=== PATIENT | female | born 1965 | race Caucasian/White ===

== ENCOUNTER 2018-06-28 21:32 | Emergency (ER) | payer BC, OTHER ==
[~2018-06-28] VITALS: Ht 175.3 cm; Wt 117.9 kg
[~2018-06-28 21:32] MED LIST: BISACODYL SUPP10 MG RECTAL; CITRATE OF MAG296 ML PER TUBE; COLACE100 MG PO; DUONEB 2.5-0.5 M3 ML INH; EUCERIN CREME57 GM TOP; HEPARIN SO5000 UNIT2 SUBQ; LACTINEX CHEWA1 EACH PO; LEVOTHYROXIN0.075 MG PO; LIPITOR10 MG PO; LISINOPRIL5 MG PO; MELATONIN5 M1 PO; NORVASC5 MG PO; NYSTATIN 1100000 U/M PO; PEPTO-BISM262 MG/15 PO; PROBIOTIC1 EAC1 PO; SEROQUEL 25 MG25 M1 PO; TOPROL XL25 MG PO; TRAZODONE 150150 M1 PO; TYLENOL325 MG PO
[2018-06-28 22:19] LABS: URINE BLOOD 3+ (Negative); URINE CLARITY CLOUDY; URINE COLOR YELLOW; URINE GLUCOSE-RANDOM* NEGATIVE (Negative); URINE KETONES NEGATIVE (Negative); URINE NITRITE-REFLEX NEGATIVE (Negative); URINE PROTEIN (DIPSTICK) 2+ (Negative)
[2018-06-28 22:22] LABS: ICTOTEST (BILI CONFIRMATORY) Negative (Negative); URINE BILIRUBIN NEGATIVE (Negative); URINE LEUKOCYTES-REFLEX 3+ (Negative)
[2018-06-28 22:37] LABS: CASTS None Seen /LPF (None Seen); MUCUS >6 Heavy strn/LPF (None Seen); SQUAMOUS 4-10 Moderate /LPF (0-3); URINE WBC-REFLEX >25 Many /HPF (0-5)
[2018-06-28 22:38] LABS: BACTERIA-REFLEX >30 Many /HPF (None Seen); CRYSTALS None Seen /LPF (None Seen); URINE RBC >20 Many /HPF (0-2)
[2018-06-28 23:08] LABS: HEMOGLOBIN 13.1 gm/dL (12.0-15.0); MCH 28.3 pg (26.0-34.0); MCHC 32.9 g/dL (28.0-37.0); MCV 86.2 fL (80.0-100.0); RBC 4.64 mil/uL (4.20-5.00); RDW 14.2 % (10.5-14.5); WBC 9.5 thou/uL (4.0-11.0)
[2018-06-28 23:18] LABS: ANION GAP 10 mmol/L (7-16); BUN 19 mg/dL (7-18); CHLORIDE 106 mmol/L (98-107); CO2 22 mmol/L (21-32); CREATININE 0.9 mg/dL (0.6-1.0); GLUCOSE 122 mg/dL (74-106); POTASSIUM 3.4 mmol/L (3.5-5.1); SODIUM 138 mmol/L (136-145)
[2018-06-28 23:26] LABS: ALBUMIN 3.5 g/dL (3.4-5.0); LIPASE 156 U/L (73-393); SGOT 30 U/L (15-37); SGPT 41 U/L (30-65); TOTAL BILIRUBIN 0.3 mg/dL (<0.1-1.0); TOTAL PROTEIN 7.9 g/dL (6.4-8.2); TROPONIN-I <0.06 ng/mL (<0.06)
[2018-06-29] MEDS ORDERED: MACROBID 100 M100 M1 PO (00:02)
[2018-06-29 00:15] VITALS: BP 129/71
--- NOTE | 2018-06-29 16:52 | EKG ---
[place] [address] [facility] [place] [address] ELECTROCARDIOGRAM REPORT Name: LEAH BLUNT [facility] [id number] ������������������ Admission: 06/28/18 ������������������ Attend Phys: Discharge: 06/29/18 ������������������ Date of : 61 Report #: [id number] ����������������������������������������������������������������� [id number] THIS REPORT FOR: //name// [facility] ED Test Date: 2018-06-28 Test Time: 23:28:33 Pat Name: LEAH BLUNT Department: Room: Gender: F Branch Administrator: KARINA : 1965 Requested By: Nancy Garcia Order Number: [id number] MD: Christopher Carranza Measurements Intervals [place] Rate: 94 P: -6 VA: 157 QRS: -30 QRSD: 91 T: 35 QT: 354 QTc: 443 Interpretive Statements Sinus rhythm Left axis deviation No previous ECG available for comparison Electronically Signed On 06-29-2018 16:52:18 CDT by Christopher Carranza [email or web address] ��������������������������������������������� <ELECTRONICALLY SIGNED> ���������������������������������������� By: Christopher Carranza MD, [facility] ��������������������������������������������� 06/29/18 [id number] Christopher Carranza MD, FACC /EPI
== END 2018-06-29 00:29 | disposition home or self-care (01) ==
LOC: ER 21:32
PROVIDERS: Student in an Organized Health Care Education/Training Program
DX: N39.0 Urinary tract infection, site not specified (principal); R19.7 Diarrhea, unspecified; J45.909 Unspecified asthma, uncomplicated; Z90.49 Acquired absence of other specified parts of digestive tract